=== PATIENT | male | born 2000 | race Caucasian/White ===

== ENCOUNTER 2022-01-04 23:04 | Emergency (ER) | payer BC ==
[2022-01-04] MEDS ORDERED: Ketorolac 30 MG/ML SDV IM ONE (23:14)
[2022-01-04] MEDS ORDERED: Cyclobenzaprine 10 MG Tab PO ONE (23:58)
[2022-01-04] MEDS ORDERED: Acetaminophen/HYDROcodone 325-5 MG Tab PO ONE (23:58)
[2022-01-05] MEDS ORDERED: HYDROmorphone 1 MG/ML Syringe IVPUSH ONE ×2 (01:20→02:15)
[2022-01-05 02:19] VITALS: BP 128/76; PULSE 68
== END 2022-01-05 02:45 ==
LOC: KA.ED 23:04
DX: J94.2 Hemothorax (principal)
CPT/HCPCS: 71101; 71260; 96372; 96374; 99284; 99285; A9270; J1170; J1885